=== PATIENT | female | born 1970 | race Caucasian/White ===

== ENCOUNTER 2017-03-09 09:19 | Inpatient (IN) ==
[2017-03-09] MEDS ORDERED: *HR* HYDROcodone/Acet 5/325 mg TABLET PO PRN (11:02)
[2017-03-09] MEDS ORDERED: NON-FORMULARY MEDICATION 1 EACH EACH (Oxygen [Oxygen] 3 L) SCH (11:15)
[2017-03-09] MEDS ORDERED: TREPROSTINIL SODIUM SCH (11:15)
[2017-03-09] MEDS ORDERED: Haloperidol Lactate 5 MG/ML VIAL IM PRN (11:28)
[2017-03-09] MEDS ORDERED: hydrOXYzine pamoate 25 MG CAPSULE PO PRN (11:28)
[2017-03-09] MEDS ORDERED: Mag Hydrox/Al Hydrox/Simeth 30 ML UDC PO PRN (11:28)
[2017-03-09] MEDS ORDERED: *HR* LORazepam 2 MG/ML VIAL IM PRN (11:28)
[2017-03-09] MEDS ORDERED: MOM Conc 10 ML UD.LIQ PO PRN (11:28)
[2017-03-09] MEDS ORDERED: *HR* LORazepam 1 MG TABLET PO PRN (11:28)
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
[2017-03-09] MEDS: Gabapentin 300 MG CAPSULE PO SCH ×2 (14:57→20:53)
[2017-03-09] MEDS: Torsemide 20 MG TABLET PO SCH (20:53)
[2017-03-09] MEDS: Ibuprofen 200 MG TABLET PO SCH (20:53)
[2017-03-09] MEDS ORDERED: NON-FORMULARY MEDICATION 1 EACH EACH (Oxygen [Oxygen] 5 L) IH SCH (21:00)
[2017-03-09] MEDS ORDERED: Spironolactone 25 MG TABLET PO SCH (21:00)
[2017-03-09] MEDS: traZODone 50 MG TABLET PO PRN (22:46)
[2017-03-10] MEDS: Famotidine 20 MG TABLET PO SCH (07:13)
[2017-03-10] MEDS: Loratadine 10 MG TABLET PO SCH (09:32)
[2017-03-10] MEDS: Ibuprofen 200 MG TABLET PO SCH ×2 (09:32→20:14)
[2017-03-10] MEDS: Aspirin 81 MG TAB.CHEW PO SCH (09:32)
[2017-03-10] MEDS: Gabapentin 300 MG CAPSULE PO SCH ×3 (09:33→20:17)
[2017-03-10] MEDS: Torsemide 20 MG TABLET PO SCH ×2 (09:34→20:16)
[2017-03-10] MEDS: TADALAFIL 20 MG PO SCH (11:06)
[2017-03-10] MEDS: Spironolactone 25 MG TABLET PO SCH (12:25)
[2017-03-10] MEDS: TREPROSTINIL SODIUM PO SCH (12:30)
--- NOTE | 2017-03-10 14:35 | Psychiatry Progress Note ---
Date of Encounter: 03/10/17 Time of Encounter: 14:25 Subjective Interval history: Patient was seen for follow-up. She is compliant with medication, denies suicidal ideation. She minimally participated in activities. Her affect is superficial and insight is limited. Staff encouraged her to be participant in groups. Review of Systems Psychiatric: Reports: depression, anxiety, suicidal ideation, hopelessness Objective: Exam Patient orientation: Yes Person, Yes Time, Yes Place Level of alertness: Alert Patient appearance: Appropriate, Well Groomed, Obese Behavior: calm, cooperative, other (Superficial) Psychomotor activity: Normal Eye contact: Maintains Eye Contact Mood description: Euthymic/stable Affect description: congruent with mood, full range Speech pattern: Normal rate, Normal rhythm, Normal tone Speech volume: Normal Thought process: Circumstantial, Tangential, [place] Thought content: No Suicidal ideation, No Homicidal ideation, No Overt delusions Perceptual disturbances: No Auditory hallucinations, No Visual hallucinations Judgment: Fair Insight: Partial Results - Vital Signs Vital Signs: Temp Pulse Resp BP Pulse Ox 98.8 F 91 18 125/79 92 03/10/17 09:00 03/10/17 09:00 03/10/17 09:00 03/10/17 09:00 03/09/17 21:00 Assessment and Plan (1) Severe recurrent major depression without psychotic features Current visit: Yes Status: Acute Plan: Continue hospitalization, Close observation, Suicide Precautions per unit protocol, Encourage participation in unit milieu, Group Therapy, Monitor sleep, Monitor appetite Risks, benefits, side effects, alternatives discussed w/pt: Yes Patient agreeable to treatment: Yes Consult Discharge Plan - Plan Referrals: [facility] [Outside] (These appointments are in the [place], [place] office located at [address] [place] [address]. Records may be faxed to [phone]. You will see Diallo for counseling on 03/15/2017 at 12:00pm. you will see Evette Chandler , psychiatric prescriber, on 04/04/2017 at 1:30pm.)
[2017-03-10] MEDS: traZODone 50 MG TABLET PO PRN (22:57)
[2017-03-11] MEDS: Famotidine 20 MG TABLET PO SCH (06:55)
[2017-03-11] MEDS: Spironolactone 25 MG TABLET PO SCH (07:57)
[2017-03-11] MEDS: Ibuprofen 200 MG TABLET PO SCH ×2 (07:57→21:39)
[2017-03-11] MEDS: Loratadine 10 MG TABLET PO SCH (07:58)
[2017-03-11] MEDS: Torsemide 20 MG TABLET PO SCH ×2 (07:58→21:40)
[2017-03-11] MEDS: Aspirin 81 MG TAB.CHEW PO SCH (07:59)
[2017-03-11] MEDS: Gabapentin 300 MG CAPSULE PO SCH ×3 (07:59→21:39)
[2017-03-11] MEDS: TADALAFIL 20 MG PO SCH (11:39)
--- NOTE | 2017-03-11 13:35 | Psychiatry Progress Note ---
Date of Encounter: 03/11/17 Time of Encounter: 01:25 Subjective Interval history: Patient seen and interviewed. History and physical examination reviewed. Patient is reporting of noticing some improvement in her mood. She is still anxious and nervous but suicidal ideations have subsided for most part. Patient and her are addressing their issues and resolving them on telephone. Patient reported that is coming tonight to visit and address ongoing issues. Patient feels that they will be able to resolve most of their issues and she will be ready to go home tomorrow. Patient has been more active in attending groups and participating in activities. She is working on a safety plan. She is more future oriented. Tolerating medications fairly well and did not report any side effects. Overall making progress. Review of Systems Psychiatric: Reports: depression, anxiety Objective: Exam Patient orientation: Yes Person, Yes Time, Yes Place Level of alertness: Alert Patient appearance: Appropriate, Well Groomed Behavior: calm, cooperative Psychomotor activity: Normal Eye contact: Maintains Eye Contact Mood description: Depressed, Anxious Affect description: labile Speech pattern: Normal rate, Normal rhythm, Normal tone Speech volume: Normal Thought process: Linear, Goal Oriented Thought content: No Suicidal ideation, No Homicidal ideation, No Overt delusions Perceptual disturbances: No Auditory hallucinations, No Visual hallucinations Judgment: Fair Insight: Partial Results - Vital Signs Vital Signs: Temp Pulse Resp BP Pulse Ox 98.2 F 78 16 115/66 92 03/11/17 09:00 03/11/17 09:00 03/11/17 09:00 03/11/17 09:00 03/09/17 21:00 Assessment and Plan (1) Severe recurrent major depression without psychotic features Current visit: Yes Status: Acute Plan: Continue hospitalization, Close observation, Suicide Precautions per unit protocol, Encourage participation in unit milieu, Group Therapy, Monitor sleep, Monitor appetite Additional Plan: We will continue the current regimen of medications. Possible discharge tomorrow Risks, benefits, side effects, alternatives discussed w/pt: Yes Patient agreeable to treatment: Yes Consult Discharge Plan - Plan Referrals: [facility] [Outside] (These appointments are in the [place], [place] office located at [address] [place] [address]. Records may be faxed to [phone]. You will see Diallo for counseling on 03/15/2017 at 12:00pm. You will see Evette Chandler , psychiatric prescriber, on 04/04/2017 at 1:30pm.)
[2017-03-11] MEDS: TREPROSTINIL SODIUM PO SCH (15:22)
[2017-03-11] MEDS: *HR* HYDROcodone/Acet 5/325 mg TABLET PO PRN (19:55)
[2017-03-11] MEDS: traZODone 50 MG TABLET PO PRN (23:23)
[2017-03-12] MEDS: TREPROSTINIL SODIUM PO SCH ×2 (01:15→11:11)
[2017-03-12] MEDS: Famotidine 20 MG TABLET PO SCH (08:23)
[2017-03-12] MEDS: Torsemide 20 MG TABLET PO SCH (08:56)
[2017-03-12] MEDS: Spironolactone 25 MG TABLET PO SCH (08:56)
[2017-03-12] MEDS: Ibuprofen 200 MG TABLET PO SCH (08:56)
[2017-03-12] MEDS: Aspirin 81 MG TAB.CHEW PO SCH (08:57)
[2017-03-12] MEDS: Loratadine 10 MG TABLET PO SCH (08:57)
[2017-03-12] MEDS: Gabapentin 300 MG CAPSULE PO SCH ×2 (08:58→14:18)
[2017-03-12] MEDS: TADALAFIL 20 MG PO SCH (09:31)
[2017-03-12] MEDS: *HR* HYDROcodone/Acet 5/325 mg TABLET PO PRN (09:34)
[2017-03-12 11:56] VITALS: BP 131/78
--- NOTE | 2017-03-12 12:03 | Discharge Summary ---
Date of Encounter: 03/12/17 Time of Encounter: 11:35 Diagnosis - Discharge Diagnosis (1) Severe recurrent major depression without psychotic features Status: Acute Medications - Discharge Medications Prescriptions: Duloxetine [Cymbalta] 60 mg PO DAILY #30 capsule. HydrOXYzine Pamoate 25 mg PO TID PRN #90 capsule PRN Reason: Anxiety TraZODone 50 mg PO HS PRN #30 tablet PRN Reason: Insomnia Acetaminophen [Tylenol] 1,000 mg PO Q6HR PRN 03/09/17 [History] Albuterol Sulfate [Proair Hfa] 2 puff IH Q4H PRN 03/09/17 [History] Aspirin 81 mg PO DAILY 03/09/17 [History] Dicyclomine [Bentyl] 10 mg PO BID 03/09/17 [History] Famotidine [Pepcid] 20 mg PO DAILY 03/09/17 [History] Ferrous Sulfate [Iron] 325 mg PO DAILY 03/09/17 [History] Gabapentin [Neurontin] 600 mg PO TID 03/09/17 [History] HYDROcodone/Acet 5/325 mg [[place] 5-325 mg] 1 tab PO Q4H PRN 03/09/17 [History] Ibuprofen [Motrin] 200 mg PO BID 03/09/17 [History] Loratadine [Allergy Relief] 10 mg PO DAILY 03/09/17 [History] Oxygen 3 l .ROUTE DAILY 03/09/17 [History] Oxygen 5 l IH HS 03/09/17 [History] Potassium Chloride [K-Tab ER] 40 meq PO BID 03/09/17 [History] Spironolactone [Aldactone] 25 mg PO HS 03/09/17 [History] Tadalafil [Adcirca] 40 mg PO DAILY 03/09/17 [History] Torsemide [Demadex] 10 mg PO HS 03/09/17 [History] Torsemide [Demadex] 20 mg PO QAM 03/09/17 [History] Treprostinil Sodium [Remodulin] 5 mg .ROUTE AD MDD PER PUMP 03/09/17 [History] Duloxetine [Cymbalta] 60 mg PO DAILY #30 capsule. 03/12/17 [Rx] HydrOXYzine Pamoate 25 mg PO TID PRN #90 capsule 03/12/17 [Rx] TraZODone 50 mg PO HS PRN #30 tablet 03/12/17 [Rx] Allergies Penicillins [PCN] Allergy (Verified 03/09/17 09:51) Anaphylaxis Erythromycin Base Adverse Reaction (Intermediate, Verified 03/09/17 09:48) Vomiting ambrisentan [From Letairis] Adverse Reaction (Mild, Verified 03/09/17 09:49) Heartburn doxycycline Adverse Reaction (Verified 03/09/17 09:51) Vomiting nitroglycerin Adverse Reaction (Verified 03/09/17 09:51) Hypotension pantoprazole [From Protonix] Adverse Reaction (Verified 03/09/17 10:44) Heartburn Provider Date of admission: 03/09/17 09:19 Primary care physician: PCP NO Discharging clinician: Angeles Gentile Assessment and Plan - Patient/Caregiver Discharge Instructions Activity: resume usual activities as tolerated Diet: regular diet - Follow up Plan Follow up with: [facility] [Outside] (These appointments are in the [place], [place] office located at [address] [place] [address]. Records may be faxed to [phone]. You will see Diallo for counseling on 03/15/2017 at 12:00pm. You will see Evette Chandler , psychiatric prescriber, on 04/04/2017 at 1:30pm.) Functional capacity at discharge: independent ambulation Overall status at discharge: Stable Disposition: Home, Self-Care Hospital Course Hospital course: Ms. Chan is a 46 year old female Who was referred for hospitalization for depression and suicidal ideations. The patient was hospitalized and after reviewing the symptom diagnosis treatment plan and explaining the risks benefits side effects alternative to treatment consequences of no treatment and getting informed consent from the patient she was started on Cymbalta 60 mg daily Vistaril 25 mg 3 times a day and trazodone 50 mg at at bedtime. Patient was continued on the other medication that she was taking for her medical problems. Patient's ongoing issue was relationship and marital problems which she addressed and resolved while she was in the hospital. Patient attended groups participated in activities and started to notice improvement in her mood or hopelessness helplessness and suicidal ideation subsided. She became future oriented and was able to verbalize a safety plan. She tolerated medications fairly well and did not report any side effects. Overall her condition on discharge was stable and she was denying any suicidal or homicidal ideations on discharge. - Time Spent with Patient Total time spent providing and/or coordinating discharge services: Quality - Multiple Antipsychotics Patient discharged on 2 or more antipsychotic medications: No Procedures - Procedures Procedures: Medication Management, Crisis Stabilization, Supportive Therapy, Group Therapy, Psychoeducational Therapy Mental Status Exam - Mental Status Exam Patient orientation: Yes Person, Yes Time, Yes Place Level of alertness: Alert Patient appearance: Appropriate, Well Groomed Behavior: calm, cooperative Psychomotor activity: Normal Eye contact: Maintains Eye Contact Mood description: Euthymic/stable Affect description: congruent with mood, full range Speech pattern: Normal rate, Normal rhythm, Normal tone Speech Volume: Normal Thought process: Linear, Goal Oriented Thought Content: No Suicidal ideation, No Homicidal ideation, No Overt delusions Perceptual Disturbances: No Auditory hallucinations, No Visual hallucinations Judgment: Limited Insight: Partial
== END 2017-03-12 14:50 | disposition home or self-care (01) | DRG 885 ==
LOC: 1ANU 09:19 → SUATTDRO 09:19 → 1ANU 03-11 13:34
PROVIDERS: ADMIT Psychiatry & Neurology Psychiatry; ATTEND Psychiatry & Neurology Psychiatry